=== PATIENT | male | born 1930 | race Caucasian/White ===

== ENCOUNTER → 2017-01-14 | Outpatient (CLI) | payer MEDICARE ==
--- NOTE | 2017-01-14 09:59 | REP ---
Right lower extremity Duplex Doppler venous ultrasound: Real time compression and duplex Doppler interrogation of the right lower extremity deep venous system is performed. The right common femoral, superficial femoral and popliteal veins are fully compressible with transducer pressure and demonstrate normal spontaneous and phasic flow, without evidence of deep venous thrombosis. Impression: No evidence of deep venous thrombosis of the right lower extremity femoral popliteal venous system. Signed by Javier Maldonado MD 01/14/2017 09:50 A
== END ==
LOC: M RAD 09:16
PROVIDERS: ATTEND Nurse Practitioner Family
DX: M79.89 Other specified soft tissue disorders (principal)

== ENCOUNTER → 2017-08-01 | Outpatient (CLI) | payer MEDICARE ==
[2017-08-01 16:56] LABS: MEAN CORPUSCULAR HEMOGLOBIN 30.6 pg (27.0-33.0); MEAN CORPUSCULAR VOLUME 95.7 fl (80.0-96.0); PLATELET COUNT, AUTOMATED 220 10^3/uL (150-450); WHITE BLOOD COUNT 9.8 10^3/uL (4.0-10.0)
[2017-08-01 17:11] LABS: INR 2.16
[2017-08-01 18:19] LABS: ALBUMIN 3.5 GM/DL (3.2-5.2); ALBUMIN/GLOBULIN RATIO 0.97 (1.00-1.93); BILIRUBIN,TOTAL 0.6 MG/DL (0.2-1.0); CALCIUM LEVEL 8.9 MG/DL (8.8-10.2); CREATININE FOR GFR 1.25 MG/DL (0.70-1.30); FREE T4 1.29 NG/DL (0.76-1.46); POTASSIUM SERUM 4.9 MEQ/L (3.5-5.1); TOTAL PROTEIN 7.1 GM/DL (6.4-8.2)
== END ==
LOC: M WUC 12:39
PROVIDERS: ATTEND Physician Assistant
DX: R42 Dizziness and giddiness (principal); Z79.01 Long term (current) use of anticoagulants; Z79.899 Other long term (current) drug therapy
CPT/HCPCS: 36415; 80053; 84439; 84443; 85027; 85610; G0463

== ENCOUNTER 2017-09-05 00:22 | Inpatient (IN) | payer MEDICARE ==
[~2017-09-05] VITALS: Ht 177.8 cm; Wt 80.0 kg
[2017-09-05] MEDS ORDERED: COUM2.5T17 PO (00:33)
[2017-09-05] MEDS ORDERED: LEVO75TA4 PO (00:33)
[2017-09-05] MEDS ORDERED: PACE200T PO (00:33)
[2017-09-05] MEDS ORDERED: COUM1TAB17 PO (00:33)
[2017-09-05] MEDS ORDERED: PROT1TAB2 PO (00:33)
[2017-09-05] MEDS ORDERED: ONDANSETRON 4MG/2ML VIAL (J2405) IV ONE (01:00)
[2017-09-05 01:11] LABS: BASO # 0.1 10^3/uL (0.0-0.2); BASO % 0.6 % (0.0-1.0); EOS # 0.2 10^3/uL (0.0-0.50); EOS % 1.2 % (0.0-3.0); IMMATURE GRANULOCYTE % 0.4 % (0-0); LYMPH # 2.1 10^3/uL (1.5-4.5); LYMPH % 17.5 % (24.0-44.0); MEAN CORPUSCULAR HEMOGLOBIN 30.8 pg (27.0-33.0); MEAN CORPUSCULAR HGB CONC 33.2 g/dl (32.0-36.5); MEAN CORPUSCULAR VOLUME 92.7 fl (80.0-96.0); MONO # 1.1 10^3/uL (0.0-0.8); MONO % 9.5 % (0.0-5.0); NEUTROPHILS # 8.5 10^3/uL (1.8-7.7); NEUTROPHILS % 70.8 % (36.0-66.0); PLATELET COUNT, AUTOMATED 235 10^3/uL (150-450); RED CELL DISTRIBUTION WIDTH 13.4 % (11.5-14.5)
[2017-09-05] MEDS: MORPHINE 2 MG/ML 1ML SYRINGE IV PRN ×2 (01:15→03:06)
[2017-09-05 01:32] LABS: INR 2.72
[2017-09-05 01:40] LABS: ALBUMIN 3.6 GM/DL (3.2-5.2); ALBUMIN/GLOBULIN RATIO 1.03 (1.00-1.93); BILIRUBIN,DIRECT 0.2 MG/DL (0.0-0.2); BILIRUBIN,TOTAL 0.8 MG/DL (0.2-1.0); CALCIUM LEVEL 8.5 MG/DL (8.8-10.2); CREATININE FOR GFR 1.32 MG/DL (0.70-1.30); GLOMERULAR FILTRATION RATE 54.5 (>35); POTASSIUM SERUM 4.5 MEQ/L (3.5-5.1); TOTAL PROTEIN 7.1 GM/DL (6.4-8.2)
[2017-09-05] MEDS ORDERED: ISOVUE-370 76% 100ML VIAL (Q9967) As Ordered ONE (01:48)
[2017-09-05] MEDS ORDERED: PHYTONADIONE 5 MG TAB PO ONE (03:00)
[2017-09-05] MEDS ORDERED: DOCU100C16 PO (03:29)
[2017-09-05] MEDS ORDERED: FLON50SP (03:29)
[2017-09-05] MEDS ORDERED: TYLE500T78 PO (03:29)
[2017-09-05] MEDS ORDERED: WARF-23 PO (03:29)
[2017-09-05] MEDS ORDERED: FLUTICASONE PROP 0.05% NASAL SPRAY 16 GM (FLONASE) PRN (05:00)
[2017-09-05] MEDS ORDERED: ONDANSETRON 4MG/2ML VIAL (J2405) IV PRN (05:00)
[2017-09-05] MEDS ORDERED: ACETAMINOPHEN TAB 650MG DOSE (2X325MG) PO PRN (05:00)
[2017-09-05] MEDS ORDERED: LEVOTHYROXINE 75MCG TABLET (0.075MG) PO SCH (06:00)
[2017-09-05 06:19] VITALS: BP 142/84
--- NOTE | 2017-09-05 07:28 | HPE ---
DATE OF ADMISSION: 09/05/2017 PRIMARY CARE PHYSICIAN: Dr. Zhao. CHIEF COMPLAINT: Abdominal pain. HISTORY OF PRESENT ILLNESS: This is an 86-year-old who on 09/02/2017 which is Friday this week was carrying a small propane cylinder which was heavier than he thought and had some abdominal discomfort. Pain increased in the right side of his abdomen, gradually became worse. He describes it as sharp associated with an area that was tender to touch on the right side of his abdomen. Other than that, he has been feeling well with no complaints of fever, chills, pain, chest pain, shortness of breath. PAST MEDICAL HISTORY: Notable for: Atrial fibrillation, status post pacemaker. Tinnitus. Multiple myeloma in situ. Squamous cell carcinoma in situ. Hypothyroidism. Hypertension. Hyperlipidemia. Tremor. Gout. Chronic obstructive pulmonary disease (COPD). PAST SURGICAL HISTORY: Notable for: Hernia repair times two. Excision of skin cancer on his neck. Pacemaker for tachybrady syndrome. Cardioversion. ALLERGIES: EGGS. FAMILY HISTORY: Notable for father of old age, mother of old age. SOCIAL HISTORY: He is a nonsmoker. Lives at home where he cares for his who is currently on hospice. He has concerns that she may need more help now that he is in the hospital today. There are visiting hospice nurses scheduled today. REVIEW OF SYSTEMS: Notable for no headache. No visual changes. No runny nose. No sore throat. No cough. No shortness of breath. He is not describing orthopnea or paroxysmal nocturnal dyspnea. He has had abdominal pain. Review of systems otherwise unremarkable. Temperature 97.3, pulse 69, respiratory rate 16, blood pressure 141/81, 95% on room air. Input and output are notable for body mass index of 25.3. He is awake, appropriately interactive, pleasantly conversant. Good historian. Head is normocephalic. Sinuses nontender. Pupils equal, round, and reactive. He is wearing corrective lenses. Anicteric, not injected. Mucous membranes moist. Neck is supple. Breathing is symmetrical, rested. I:E ratio is 1:3. Heart: Distant sounding, normal S1, S2. Regular rate and rhythm. Abdomen is notable for right sided periumbilical fullness when compared to left and tenderness with no erythema or warmth. There is no lower extremity edema. White cell count 12.0, hemoglobin 15.7, platelets of 235. Sodium 141, potassium 4.5, chloride 107, carbon dioxide 30, BUN 26, creatinine 1.3, glucose 119. CT of his abdomen and pelvis shows a 8.6 x 6.5 acute intramuscular (cut off). ASSESSMENT: This is an 86-year-old on Coumadin who has developed a intramuscular hematoma on the rectus abdominal muscle in the setting of lifting. Patient will be admitted for reversal of his Coumadin and further monitoring. PLAN: 1. Heme. Patient has fresh frozen plasma ordered times one, has received vitamin K already. He has a bleed which will likely be self contained as this was within the muscle. Case was discussed with Dr. Desai in the ER who suggests that there is no surgical consultation necessary. 2. Patient has atrial fibrillation, will be off anticoagulation for the near future. 3. Patient has hypothyroidism. Will continue his Synthroid. 4. Patient has hyperlipidemia. 5. Patient has history of chronic obstructive pulmonary disease (COPD), appears compensated from a respiratory stand point. 6. Deep venous thrombosis prophylaxis will be mechanical. 7. Patient will be signed out to the medicine team in 2 hours.
[2017-09-05] MEDS ORDERED: AMIODARONE 200 MG TAB (PACERONE) PO SCH (09:00)
[2017-09-05] MEDS ORDERED: DOCUSATE SODIUM 100 MG CAP PO SCH (09:00)
[2017-09-05] MEDS ORDERED: PANTOPRAZOLE 40MG TAB (PROTONIX) PO SCH (09:00)
--- NOTE | 2017-09-05 09:48 | REPUSA ---
CLINICAL HISTORY: Abdominal pain. TECHNIQUE: Multiple axial, sagittal and coronal CT images were obtained through the abdomen and pelvi s after administration of intravenous contrast material. COMMENTS: 8.6x6.5 cm acute intra-muscular hematoma in the lower aspect of the rectus abdominous muscle. Surrounding fat edema and stranding. Small sliding hiatal hernia. Moderate prostatomegaly. Bilateral basilar atelectatic pulmonary changes. Small right pleural effusion. Mild hepatomegaly. There is no intra or extrahepatic biliary ductal dilatation. The spleen is normal. The gallbladder is within normal limits. The pancreas is of normal contour and attenuation characteristics. There is no evidence of adrenal mass. Both kidneys demonstrate prompt and equal nephrograms. The kidneys are normal in size, shape and conf iguration. There is no evidence of renal or ureteral mass. No renal or ureteral calculi are identifie d. There is no hydroureter or hydronephrosis. No evidence for appendicitis. There is no bowel wall thickening. No evidence for small or large miryam l obstruction. There is no evidence of intrinsic or extrinsic bladder mass. There is small amount of free pelvic flu id. Images of the lung bases show no evidence of pleural or parenchymal mass. The bony structures are free of lytic or blastic lesions. Multilevel degenerative changes are seen in volving the thoracolumbar spine. Scattered calcifications are seen involving the aorta and major bran ches compatible with atherosclerosis. Atherosclerotic, tortuous ectatic infrarenal aorta. IMPRESSION: 8.6x6.5 cm acute intra-muscular hematoma in the lower aspect of the rectus abdominous muscle. Surrounding fat edema and stranding. Small sliding hiatal hernia. Moderate prostatomegaly. Bilateral basilar atelectatic pulmonary changes. Small right pleural effusion. Mild hepatomegaly. Thank you for your kind referral of this patient.
--- NOTE | 2017-09-05 10:13 | IPNPDOC ---
Subjective Date Seen The patient was seen on 09/05/17. Subjective Chief Complaint/HPI The patient is a 86-year-old male admitted with a reason for visit of Rectus Sheath Hematoma. Events since last encounter Pt this morning states that his pain is better today that it was yesterday or overnight. He wants to go home. His is on Hospice and he is her primary caregiver. General: Denies: Fatigue Constitutional: Denies: Fever ENT: Denies: Head Aches Pulmonary: Denies: Dyspnea, Cough Cardiovascular: Denies: Chest Pain, Palpitations Gastrointestinal: Denies: Nausea, Vomiting, Diarrhea Neurological: Denies: Weakness Psych: Reports: Mood Normal Objective Physical Examination General Exam: Positive: Alert, Cooperative, No Acute Distress ENT Exam: Positive: Mucous membr. moist/pink Chest Exam: Positive: Clear to auscultation, Diminished Heart Exam: Positive: Normal S1, Normal S2 Abdomen Exam: Positive: Normal bowel sounds, Soft, Tenderness (diffusely tender with mild palp, but more notable in the lower abd) Extremity Exam: Negative: Edema Psych Exam: Positive: Mental status NL Assessment /Plan Problems (1) Rectus sheath hematoma Status: Acute Response to Treatment: Stable Discussed With: Nurse, Patient Problem Specific Plan: Monitor Clinically, Repeat Labs Problem Text: Coumadin held, has rec Vit K and FFP, repeat CBC, INR ordered for 11 am today, to monitor. Last done at 1 am. Pt is aware. Pain is better controlled, he is eager to go home. We talked about the need to make sure his pain is controlled and the bleeding has stopped. I spoke with nursing asked Ami to see how he does getting up and walking, consider PT eval. I see no compelling requirement for patient to stay in hospital if he can walk safely and if his labs don't show other need for action (drawn, pending) (2) Pleural effusion on right Status: Acute Response to Treatment: Stable Problem Text: noted on CT. some airspace disease observed, possibly related to compression from effusion, as well. patient had experienced a fall a few days before the lifting event triggered the abdominal wall hematoma. possibly related to trauma from the fall. no real cough or dyspnea or rib pain Plan/VTE VTE Prophylaxis Ordered?: No VTE Exclusion Pharmacological: Active Bleeding Plan Anticipated Discharge: Home VS, I&O, 24H, Fishbone Vital Signs/I&O Vital Signs Date Time Temp Pulse Resp B/P (MAP) Pulse Ox O2 Delivery O2 Flow Rate FiO2 09/05/17 06:19 96.9 67 18 142/84 (103) 93 Room Air Laboratory Data 24H LABS Laboratory Tests 2 09/05/17 01:05: Immature Granulocyte % (Auto) 0.4H, White Blood Count 12.0H, Red Blood Count 5.10, Hemoglobin 15.7, Hematocrit 47.3, Mean Corpuscular Volume 92.7, Mean Corpuscular Hemoglobin 30.8, Mean Corpuscular Hemoglobin Concent 33.2, Red Cell Distribution Width 13.4, Platelet Count 235, Neutrophils (%) (Auto) 70.8H, Lymphocytes (%) (Auto) 17.5L, Monocytes (%) (Auto) 9.5H, Eosinophils (%) (Auto) 1.2, Basophils (%) (Auto) 0.6, Neutrophils # (Auto) 8.5H, Lymphocytes # (Auto) 2.1, Monocytes # (Auto) 1.1H, Eosinophils # (Auto) 0.2, Basophils # (Auto) 0.1, Immature Granulocyte # (Auto) 0.1H, Nucleated Red Blood Cells % (auto) 0.0, Prothrombin Time 30.0H, Prothromb Time International Ratio 2.72, Activated Partial Thromboplast Time 66.8H, Anion Gap 5L, Glomerular Filtration Rate 54.5, Calcium Level 8.5L, Aspartate Amino Transf (AST/SGOT) 18, Alanine Aminotransferase (ALT/SGPT) 19, Alkaline Phosphatase 82, Total Bilirubin 0.8, Direct Bilirubin 0.2, Total Protein 7.1, Albumin 3.6, Albumin/Globulin Ratio 1.03, Lipase 117 CBC/BMP Laboratory Tests 09/05/17 01:05 Red Blood Count 5.10, Mean Corpuscular Volume 92.7, Mean Corpuscular Hemoglobin 30.8, Mean Corpuscular Hemoglobin Concent 33.2, Red Cell Distribution Width 13.4 , Neutrophils (%) (Auto) 70.8 H, Lymphocytes (%) (Auto) 17.5 L, Monocytes (%) ( Auto) 9.5 H, Eosinophils (%) (Auto) 1.2, Basophils (%) (Auto) 0.6, Neutrophils # (Auto) 8.5 H, Lymphocytes # (Auto) 2.1, Monocytes # (Auto) 1.1 H, Eosinophils # (Auto) 0.2, Basophils # (Auto) 0.1 TING ALFORD PA-C Sep 05, 2017 10:13 Faustino Zabala MD Sep 05, 2017 11:10
[2017-09-05 11:03] LABS: MEAN CORPUSCULAR HEMOGLOBIN 30.9 pg (27.0-33.0); MEAN CORPUSCULAR HGB CONC 32.8 g/dl (32.0-36.5); PLATELET COUNT, AUTOMATED 212 10^3/uL (150-450); RED CELL DISTRIBUTION WIDTH 13.7 % (11.5-14.5); WHITE BLOOD COUNT 9.3 10^3/uL (4.0-10.0)
[2017-09-05 11:24] LABS: INR 2.17
[2017-09-05 11:26] LABS: ANION GAP 5 MEQ/L (8-16); BLOOD UREA NITROGEN 21 MG/DL (7-18); CALCIUM LEVEL 8.3 MG/DL (8.8-10.2); CARBON DIOXIDE LEVEL 31 MEQ/L (21-32); CHLORIDE LEVEL 106 MEQ/L (98-107); CREATININE FOR GFR 1.11 MG/DL (0.70-1.30); GLOMERULAR FILTRATION RATE > 60.0 (>35); GLUCOSE, FASTING 88 MG/DL (83-110); POTASSIUM SERUM 4.7 MEQ/L (3.5-5.1); SODIUM LEVEL 142 MEQ/L (136-145)
[2017-09-05] MEDS: NORCO, ANEXSIA 5/325MG TABLET (HYDROcodone/ACETAMINOPHEN) PO PRN ×2 (12:42→17:23)
[2017-09-05 14:00] VITALS: BP 113/75
[2017-09-05 16:08] LABS: INR 1.68
[2017-09-05] MEDS ORDERED: NORCOTAB PO (17:02)
== END 2017-09-05 17:34 | disposition home or self-care (01) | DRG 605 ==
LOC: M ED 00:22 → M ED INP 04:52
PROVIDERS: ADMIT Internal Medicine; ATTEND Family Medicine
PROC: 30253K1 (ICD-10-PCS; principal; 2017-09-05)
DX: S30.1XXA Contusion of abdominal wall, initial encounter (principal); J90 Pleural effusion, not elsewhere classified; I48.91 Unspecified atrial fibrillation; E03.9 Hypothyroidism, unspecified; I10 Essential (primary) hypertension; E78.5 Hyperlipidemia, unspecified; M10.9 Gout, unspecified; J44.9 Chronic obstructive pulmonary disease, unspecified; R25.1 Tremor, unspecified; Z95.0 Presence of cardiac pacemaker; Z85.828 Personal history of other malignant neoplasm of skin; Z91.012 Allergy to eggs; R10.9 Unspecified abdominal pain; X50.0XXA Overexertion from strenuous movement or load, initial encounter; Y92.89 Other specified places as the place of occurrence of the external cause; Z79.01 Long term (current) use of anticoagulants; Z79.899 Other long term (current) drug therapy; Y99.8 Other external cause status

== ENCOUNTER → 2017-09-10 | Outpatient (REF) | payer MEDICARE ==
[~2017-09-10] MED LIST: COUM1TAB17 PO; COUM2.5T17 PO; DOCU100C16 PO; FLON50SP; LEVO75TA4 PO; NORCOTAB PO; PACE200T PO; PROT1TAB2 PO; TYLE500T78 PO; WARF-23 PO
[2017-09-10 18:51] LABS: BASO # 0.1 10^3/uL (0.0-0.2); BASO % 0.9 % (0.0-1.0); EOS # 0.2 10^3/uL (0.0-0.50); EOS % 1.5 % (0.0-3.0); IMMATURE GRANULOCYTE % 0.4 % (0-0); LYMPH # 1.2 10^3/uL (1.5-4.5); LYMPH % 10.8 % (24.0-44.0); MEAN CORPUSCULAR HGB CONC 32.1 g/dl (32.0-36.5); MEAN CORPUSCULAR VOLUME 96.8 fl (80.0-96.0); MONO % 9.2 % (0.0-5.0); NEUTROPHILS # 8.6 10^3/uL (1.8-7.7); NEUTROPHILS % 77.2 % (36.0-66.0); PLATELET COUNT, AUTOMATED 299 10^3/uL (150-450); RED CELL DISTRIBUTION WIDTH 13.4 % (11.5-14.5); WHITE BLOOD COUNT 11.2 10^3/uL (4.0-10.0)
== END ==
LOC: M SFHCPLAZ 14:57
PROVIDERS: ATTEND Nurse Practitioner Family
DX: R10.31 Right lower quadrant pain (principal)

== ENCOUNTER → 2017-09-23 | Outpatient (REF) | payer MEDICARE, MEDICAID ==
[2017-09-23 13:36] LABS: HEMATOCRIT 44.7 % (42.0-52.0); HEMOGLOBIN 14.5 g/dl (14.0-18.0); MEAN CORPUSCULAR HEMOGLOBIN 31.3 pg (27.0-33.0); MEAN CORPUSCULAR HGB CONC 32.4 g/dl (32.0-36.5); MEAN CORPUSCULAR VOLUME 96.3 fl (80.0-96.0); PLATELET COUNT, AUTOMATED 261 10^3/uL (150-450); RED BLOOD COUNT 4.64 10^6/uL (4.30-6.10); RED CELL DISTRIBUTION WIDTH 13.9 % (11.5-14.5)
== END ==
LOC: M SFHCPLAZ 10:50
DX: T14.8XXA Other injury of unspecified body region, initial encounter (principal); X50.0XXA Overexertion from strenuous movement or load, initial encounter; Y92.9 Unspecified place or not applicable; Y93.9 Activity, unspecified; I48.2 Chronic atrial fibrillation
CPT/HCPCS: 85027

== ENCOUNTER → 2018-01-05 | Outpatient (REF) | payer MEDICARE ==
[2018-01-05 13:58] LABS: ALBUMIN 3.6 GM/DL (3.2-5.2); ANION GAP 5 MEQ/L (8-16); BLOOD UREA NITROGEN 21 MG/DL (7-18); CALCIUM LEVEL 8.6 MG/DL (8.8-10.2); CARBON DIOXIDE LEVEL 29 MEQ/L (21-32); CHLORIDE LEVEL 109 MEQ/L (98-107); CREATININE FOR GFR 1.24 MG/DL (0.70-1.30); GLOMERULAR FILTRATION RATE 58.4 (>35); GLUCOSE, FASTING 76 MG/DL (70-100); POTASSIUM SERUM 4.4 MEQ/L (3.5-5.1); SODIUM LEVEL 143 MEQ/L (136-145)
== END ==
LOC: M LABDRAWP 13:12
DX: I50.32 Chronic diastolic (congestive) heart failure (principal)
CPT/HCPCS: 80069

== ENCOUNTER → 2018-04-02 | Outpatient (REF) | payer MEDICARE, MEDICAID ==
[2018-04-02 13:26] LABS: ANION GAP 7 MEQ/L (8-16); BLOOD UREA NITROGEN 19 MG/DL (7-18); CALCIUM LEVEL 8.5 MG/DL (8.8-10.2); CARBON DIOXIDE LEVEL 31 MEQ/L (21-32); CHLORIDE LEVEL 107 MEQ/L (98-107); CREATININE FOR GFR 1.39 MG/DL (0.70-1.30); GLOMERULAR FILTRATION RATE 51.2 (>35); GLUCOSE, FASTING 104 MG/DL (70-100); MAGNESIUM LEVEL 2.1 MG/DL (1.8-2.4); POTASSIUM SERUM 4.2 MEQ/L (3.5-5.1); SODIUM LEVEL 145 MEQ/L (136-145)
== END ==
LOC: M LAB REF 12:09
DX: I50.32 Chronic diastolic (congestive) heart failure (principal); I48.0 Paroxysmal atrial fibrillation
CPT/HCPCS: 83735

== ENCOUNTER 2018-04-21 11:30 | Day surgery (SDC) | payer MEDICARE ==
[2018-04-21] MEDS: ceFAZolin SOD 1 GM in D5W MINI-BAG PLUS 50 ML IV (07:00)
[~2018-04-21 11:30] MED LIST changes: -COUM1TAB17 PO; -COUM2.5T17 PO; -DOCU100C16 PO; -FLON50SP; -LEVO75TA4 PO; +LR 1,000 ML IV; -NORCOTAB PO; -PACE200T PO; -PROT1TAB2 PO; -TYLE500T78 PO; -WARF-23 PO
[2018-04-21] MEDS: MUPIROCIN 2% OINT 22 GM TUBE As Ordered (11:52)
[2018-04-21] MEDS: VANCOMYCIN 1000 MG/20 ML VIAL (J3370) As Ordered (11:53)
[2018-04-21 12:12] LABS: PROTHROMBIN TIME 16.4 SECONDS (12.1-14.4)
[2018-04-21] MEDS ORDERED: fentaNYL 100 MCG/2 ML INJECTION (J3010) As Ordered (13:16)
[2018-04-21] MEDS ORDERED: PROPOFOL 200 MG/20 ML VIAL As Ordered ×2 (13:16→13:18)
[2018-04-21] MEDS ORDERED: PHENYLephrine HCL 500 MCG/5 ML (100MCG/ML) SYRINGE (J2370) As Ordered (13:23)
[2018-04-21] MEDS: ceFAZolin 1GM INJ (J0690 PER 500MG) As Ordered (13:24)
[2018-04-21] MEDS ORDERED: ONDANSETRON 4MG/2ML VIAL (J2405) As Ordered (14:10)
[2018-04-21] MEDS: LIDOCAINE 1% SDV INJ 30 ML VIAL As Ordered (14:27)
== END 2018-04-21 15:25 | disposition home or self-care (01) ==
LOC: M SDC 11:30
DX: Z45.010 Encounter for checking and testing of cardiac pacemaker pulse generator [battery] (principal); I49.5 Sick sinus syndrome; I50.32 Chronic diastolic (congestive) heart failure; I48.0 Paroxysmal atrial fibrillation; R94.31 Abnormal electrocardiogram [ECG] [EKG]; I45.0 Right fascicular block; I34.0 Nonrheumatic mitral (valve) insufficiency; Z79.01 Long term (current) use of anticoagulants
CPT/HCPCS: 33228

== ENCOUNTER → 2018-07-17 | Outpatient (REF) | payer MEDICARE ==
[2018-07-17 12:59] LABS: ANION GAP 5 MEQ/L (8-16); BLOOD UREA NITROGEN 19 MG/DL (7-18); CALCIUM LEVEL 8.9 MG/DL (8.8-10.2); CARBON DIOXIDE LEVEL 31 MEQ/L (21-32); CHLORIDE LEVEL 106 MEQ/L (98-107); CREATININE FOR GFR 1.42 MG/DL (0.70-1.30); GLUCOSE, FASTING 95 MG/DL (70-100); POTASSIUM SERUM 4.2 MEQ/L (3.5-5.1); SODIUM LEVEL 142 MEQ/L (136-145)
== END ==
LOC: M LABDRAWP 08:38
DX: I50.32 Chronic diastolic (congestive) heart failure (principal); Z23 Encounter for immunization
CPT/HCPCS: 80048

== ENCOUNTER → 2018-08-03 | Outpatient (REF) | payer MEDICARE ==
[2018-08-03 13:43] LABS: HEMATOCRIT 48.9 % (42.0-52.0); HEMOGLOBIN 15.8 g/dl (13.5-17.5); MEAN CORPUSCULAR HGB CONC 32.3 g/dl (32.0-36.5); MEAN CORPUSCULAR VOLUME 95.9 fl (80.0-96.0); PLATELET COUNT, AUTOMATED 232 10^3/uL (150-450); RED CELL DISTRIBUTION WIDTH 14.3 % (11.5-14.5); WHITE BLOOD COUNT 7.3 10^3/uL (4.0-10.0)
[2018-08-03 14:02] LABS: ANION GAP 5 MEQ/L (8-16); BLOOD UREA NITROGEN 19 MG/DL (7-18); CALCIUM LEVEL 8.6 MG/DL (8.8-10.2); CARBON DIOXIDE LEVEL 30 MEQ/L (21-32); CHLORIDE LEVEL 107 MEQ/L (98-107); CREATININE FOR GFR 1.41 MG/DL (0.70-1.30); GLOMERULAR FILTRATION RATE 50.4 (>35); GLUCOSE, FASTING 99 MG/DL (70-100); POTASSIUM SERUM 4.7 MEQ/L (3.5-5.1); SODIUM LEVEL 142 MEQ/L (136-145)
== END ==
LOC: M LABDRAWP 13:26
DX: R06.02 Shortness of breath (principal); I50.32 Chronic diastolic (congestive) heart failure
CPT/HCPCS: 80048

== ENCOUNTER → 2018-08-12 | Outpatient (REF) | payer MEDICARE | LOC: M LAB REF 17:31 | DX: L82.1 Other seborrheic keratosis (principal); B35.9 Dermatophytosis, unspecified | CPT/HCPCS: 88305 ==

== ENCOUNTER → 2018-08-13 | Outpatient (REF) | payer MEDICARE ==
[2018-08-13 20:07] LABS: ALBUMIN 3.6 GM/DL (3.2-5.2); ALBUMIN/GLOBULIN RATIO 0.97 (1.00-1.93); ALKALINE PHOSPHATASE 93 U/L (45-117); ALT/SGPT 20 U/L (12-78); ANION GAP 8 MEQ/L (8-16); AST/SGOT 16 U/L (7-37); BILIRUBIN,TOTAL 0.6 MG/DL (0.2-1.0); BLOOD UREA NITROGEN 22 MG/DL (7-18); CALCIUM LEVEL 8.2 MG/DL (8.8-10.2); CARBON DIOXIDE LEVEL 29 MEQ/L (21-32); CHLORIDE LEVEL 106 MEQ/L (98-107); CHOLESTEROL LEVEL 172 MG/DL (<200); CHOLESTEROL RISK RATIO 5.212 (<5); CREATININE FOR GFR 1.42 MG/DL (0.70-1.30); FREE T4 1.32 NG/DL (0.76-1.46); GLUCOSE, FASTING 82 MG/DL (70-100); HDL CHOLESTEROL 33 MG/DL (>40); LDL CHOLESTEROL 87 MG/DL (<100); NON-HDL-C 139 MG/DL; POTASSIUM SERUM 4.7 MEQ/L (3.5-5.1); SODIUM LEVEL 143 MEQ/L (136-145); TOTAL PROTEIN 7.3 GM/DL (6.4-8.2); TRIGLYCERIDES LEVEL 261 MG/DL (<150)
== END ==
LOC: M SFHCADAM 14:00
DX: Z51.81 Encounter for therapeutic drug level monitoring (principal); Z79.01 Long term (current) use of anticoagulants; E03.9 Hypothyroidism, unspecified; E78.2 Mixed hyperlipidemia; I48.2 Chronic atrial fibrillation
CPT/HCPCS: 84443